=== PATIENT | male | born 1960 | race African-American/Black ===

== ENCOUNTER 2023-07-11 04:30 | Day surgery (SDC) | payer BC ==
[2023-07-07 17:01] VITALS: BMI 24.3
[2023-07-11 09:03] LABS: INR 1.1 (0.83-1.09); PROTHROMBIN TIME (PATIENT) 12.7 SEC (9.7-13.0)
[2023-07-11] MEDS ORDERED: MIDAZOLAM HCL 2 MG/2 ML SINGLE DOSE VIAL ONE (11:00)
[2023-07-11] MEDS ORDERED: PROPOFOL 20 ML ONE (11:00)
[2023-07-11] MEDS ORDERED: LIDOCAINE HCL/PF 2% SDV 5ML VIAL ONE (11:01)
[2023-07-11] MEDS ORDERED: SODIUM CHLORIDE 0.9% P/F 10 ML VIAL IJ ONE (11:01)
[2023-07-11] MEDS ORDERED: ceFAZolin SODIUM 1 GM VIAL ONE (11:01)
[2023-07-11] MEDS ORDERED: oxyCODONE HCL 5 MG TABLET PO PRN (11:12)
[2023-07-11] MEDS ORDERED: PROMETHAZINE HCL 25 MG/1 ML VIAL IVPB PRN (11:12)
[2023-07-11] MEDS ORDERED: ONDANSETRON 4 MG/2 ML VIAL IVPUSH PRN (11:12)
[2023-07-11] MEDS ORDERED: LACTATED RINGERS SOLUTION 1,000 ML IV SCH (11:15)
[2023-07-11] MEDS ORDERED: KETOROLAC TROMETHAMINE 30 MG/1 ML VIAL ONE (11:26)
[2023-07-11] MEDS ORDERED: DEXAMETHASONE SOD PHOSPHATE 4 MG/1 ML VIAL ONE (11:26)
[2023-07-11] MEDS ORDERED: ONDANSETRON 4 MG/2 ML VIAL ONE (11:26)
[2023-07-11] MEDS ORDERED: ceFAZolin SODIUM 1 GM VIAL IVPB ONE (11:34)
[2023-07-11] MEDS ORDERED: LIDOCAINE HCL 1%, 10 MG/ML (10ML VIAL) MDV ONE (11:38)
[2023-07-11] MEDS ORDERED: BUPIVACAINE HCL/PF 0.5% (5MG/ML) 10 ML VIAL ONE (11:39)
[2023-07-11] MEDS ORDERED: LIDOCAINE HCL 1%, 10 MG/ML (20ML VIAL) INF ONE (12:10)
[2023-07-11] MEDS ORDERED: BUPIVACAINE HCL/PF 0.5% (5MG/ML) 10 ML VIAL IJ ONE (12:10)
[2023-07-11] MEDS ORDERED: oxyCODONE HCL 5 MG TABLET ONE (14:20)
[2023-07-11 15:24] VITALS: RESP 20; TEMP 97.8
[2023-07-11 15:28] VITALS: BP 129/75; PULSE 72
== END 2023-07-11 14:45 | disposition home or self-care (01) ==
LOC: JASU-SURG 04:30
PROVIDERS: ATTEND Orthopaedic Surgery
PROC: 01X40Z4 Transfer Ulnar Nerve to Ulnar Nerve, Open Approach (ICD-10-PCS; principal; 2023-07-11 10:00)
DX: G56.21 Lesion of ulnar nerve, right upper limb (principal)
CPT/HCPCS: 36415; 85610; 85730; 94760